=== PATIENT | male | born 2005 | race Caucasian/White ===

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

== ENCOUNTER 2023-04-01 19:37 | Observation (INO) ==
[2023-04-01] MEDS: NS 0.9% 1000 ml BAG 1,000 ML IV ONE (23:33)
[2023-04-01] MEDS: Piperacillin/Tazobac 3.375 BAG 3.375 GM/100 ML BAG IV ONE (23:33)
[2023-04-01] MEDS: Ondansetron 4 mg VIAL 2 MG/ML 2 ml VIAL IV ONE (23:33)
[2023-04-02 00:02] LABS: ABS Basophils 0.1 10^3/uL (0.0-0.1); ABS Lymphocytes 1.7 10^3/uL (1.0-4.8); ABS Monocytes 1.2 10^3/uL (0.0-1.1); ABS Neutrophils 12.7 10^3/uL (1.5-7.6); ABS Nucleated RBC 0.03 10^3/ul; Eosinophil % 0.1 %; Lymphocyte % 10.8 %; Mean Corpuscular Hemoglobin 30.8 pg (27-33); Mean Corpuscular Hgb Conc 34.7 g/dL (31-36); Mean Corpuscular Volume 88.6 fL (80-97); Nucleated Red Blood Cells % 0.2 %/100WBC (0.0-0.8); Platelet Count 234 10^3/uL (150-450); Red Blood Count 5.19 10^6/uL (4.06-5.63); Red Cell Distribution Width 12.2 % (12-17); White Blood Count 15.6 10^3/uL (3.6-10.2)
[2023-04-02 00:25] LABS: Albumin 5.1 g/dL (3.2-5.2); Albumin/Globulin Ratio 1.8 (1-3); C Reactive Protein 22.92 mg/L (<8.01); Calcium 10.1 mg/dL (8.6-10.3); Creatinine, Serum 0.98 mg/dL (0.67-1.17); Globulin 2.8 g/dL (2-4); Potassium 3.5 mmol/L (3.5-5.0); Total Bilirubin 1.3 mg/dL (0.2-1.0); Total Protein 7.9 g/dL (6.4-8.9); eGFR CKD-EPI 113.2 (>60)
[2023-04-02] MEDS: NS 0.9% 1000 ml BAG 1,000 ML IV ONE (00:39)
[2023-04-02] MEDS: Iohexol 300 (CONTRAST) 10 ML SDV IV ONE (00:52)
[2023-04-02] MEDS ORDERED: Ondansetron 4 mg VIAL 2 MG/ML 2 ml VIAL IV PRN ×2 (02:11→09:57)
[2023-04-02] MEDS: Morphine 4 MG/ML VIAL (1 ml) IV ONE (02:44)
[2023-04-02] MEDS: D5W 1/2 NS KCl 20 meq 1000 ml 1,000 ML IV SCH (04:52)
[2023-04-02] MEDS: Piperacillin/Tazobac 3.375 BAG 3.375 GM/100 ML BAG IV SCH (07:21)
[2023-04-02] MEDS: HYDROmorphone 1 MG/1 ML SYRINGE IV SLOW PU PRN (07:21)
[2023-04-02] MEDS ORDERED: Naloxone 0.4 mg VIAL 0.4 mg/ml 1 ml VIAL IV PRN (09:57)
[2023-04-02] MEDS ORDERED: fentaNYL 100 mcg/2 ml 50 MCG/ML VIAL IV PRN (09:57)
[2023-04-02] MEDS ORDERED: Bupivacaine 0.5% SDV PF 30ML VIAL ONE (10:07)
[2023-04-02] MEDS ORDERED: Lidocaine 1% w EPI 1:200,000 SDV 30 ML VIAL ONE (10:08)
[2023-04-02] MEDS ORDERED: fentaNYL 100 mcg/2 ml 50 MCG/ML VIAL ONE (10:58)
[2023-04-02] MEDS ORDERED: Rocuronium 50 mg VIAL 10 mg/ml 5 ml VIAL (50 mg) ONE (10:58)
[2023-04-02] MEDS ORDERED: Midazolam 5 mg/5 ml VIAL 1 mg/ml 5 ml VIAL (5 mg) ONE (10:59)
[2023-04-02] MEDS ORDERED: Glycopyrrolate IV 0.2 MG/ML 1 ML VIAL ONE (10:59)
[2023-04-02] MEDS ORDERED: Lidocaine 2% PF 5 ML VIAL ONE (10:59)
[2023-04-02] MEDS ORDERED: Sterile Water for Inj 10 ML ONE (10:59)
[2023-04-02] MEDS ORDERED: Dexamethasone IV 4 MG/ML VIAL 1 ml VIAL ONE (10:59)
[2023-04-02] MEDS ORDERED: Sevoflurane BOTTLE ONE (10:59)
[2023-04-02] MEDS ORDERED: Propofol 10 MG/ML 20 ML BTL ONE (10:59)
[2023-04-02] MEDS ORDERED: Ondansetron 4 mg VIAL 2 MG/ML 2 ml VIAL ONE (10:59)
[2023-04-02] MEDS ORDERED: Phenylephrine 40 mcg/mL 10mL (400mcg) SYRINGE ONE (12:04)
[2023-04-02 14:32] VITALS: BP 115/71
== END 2023-04-02 14:25 | disposition home or self-care (01) ==
LOC: EDHOLD 19:37 → ED 19:37 → AA 04-02 10:12
PROVIDERS: ADMIT Surgery; ATTEND Surgery